=== PATIENT | male | born 1935 | race Caucasian/White ===

== ENCOUNTER → 2017-01-22 | Outpatient (CLI) | payer MEDICARE, BC | LOC: RAD 07:58 | DX: I86.1 Scrotal varices (principal); N40.1 Benign prostatic hyperplasia with lower urinary tract symptoms; R33.8 Other retention of urine ==

== ENCOUNTER → 2020-10-25 | Outpatient (CLI) | payer MEDICARE, BC ==
[~2020-10-25] MED LIST: BETAPACE AF120 M1 PO; CARDIZEM CD240 M1 PO; ENALAPRIL20 MG PO; FINASTERIDE5 M1 PO; FLOMAX0.4 MG PO; JANTOVEN5 MG PO; PRILOSEC 20MG20 MG PO
[2020-10-25 16:28] VITALS: BP 134/74
== END ==
LOC: AMSURD 16:01
DX: M81.0 Age-related osteoporosis without current pathological fracture (principal)
CPT/HCPCS: J0897

== ENCOUNTER → 2021-06-21 | Outpatient (CLI) | payer MEDICARE, BC | LOC: LAB 15:33 | DX: U07.1 COVID-19 (principal) ==